=== PATIENT | female | born 1935 | race Caucasian/White ===

== ENCOUNTER 2021-11-27 13:07 | Inpatient (IN) | payer MEDICARE, OTHER ==
[2021-11-27] MEDS ORDERED: Sodium Chloride 0.9% 10 ML Syringe FLUSH PRN (13:11)
--- NOTE | 2021-11-27 13:21 | EDM.PDOC ---
ED HPI GENERAL MEDICAL PROBLEM - General Chief Complaint: Neuro Symptoms/Deficits Stated Complaint: MEDICAL Time Seen by Provider: 11/27/21 13:10 Source of Information: Reports: Family, Old Records, RN. Denies: Patient History Limitations: Reports: Altered Mental Status - History of Present Illness INITIAL COMMENTS - FREE TEXT/NARRATIVE: 85 yo female brought in by her son after she was noted not to be acting normally since about 9 am today(may have been not acting normally before that). Is not talking is the main thing they have noticed. Is otherwise alert. Is hard of hear ing per her son. Lives alone. Is not able to tell us if she took any or all of her meds today. Onset: Today, Sudden Onset Date: 11/27/21 Onset Time: 09:00 Duration: Hour(s): (4), Constant Location: Reports: Head Quality: Reports: Other (no pain reported) Severity: Moderate Improves with: Reports: None Worsens with: Reports: None Context: Reports: Other (See HPI) Associated Symptoms: Reports: No Other Symptoms Treatments CREDIT ANALYSIS MANAGER: Reports: Other (see below) (none) - Related Data Allergies Allergy/AdvReac Type Severity Reaction Status Date / Time atorvastatin Allergy Cannot Verified 08/18/13 07:56 Remember pravastatin Allergy Muscle Verified 08/18/13 07:57 Aches simvastatin Allergy Muscle Verified 08/18/13 08:01 Aches Home Meds: Home Meds Aspirin [Halfprin] 81 mg PO DAILY 08/21/13 [History] Cholecalciferol (Vitamin D3) [Vitamin D3] 1 cap PO DAILY 08/21/13 [History] Clopidogrel Bisulfate [Clopidogrel] 75 mg PO DAILY 08/21/13 [History] Cyanocobalamin (Vitamin B12) [Vitamin B12] 1 ml IM ASDIRECTED 08/21/13 [History] Flaxseed [Flaxseed Oil] 2,000 mg PO DAILY 08/21/13 [History] Glucosamine HCl [Glucosamine] 1,500 mg PO DAILY 08/21/13 [History] Lactobacillus 3/Fos/Pantethine [Probiotic & Acidophilus] 1 cap PO DAILY 08/21/13 [History] Levothyroxine 75 mcg PO DAILY 08/21/13 [History] Metoprolol Tartrate 50 mg PO DAILY 08/21/13 [History] Multivitamin [Multi-Vitamin Daily] 1 tab PO DAILY 08/21/13 [History] [place]-3/DHA/Epa/Fish Oil [Fish Oil 1,000 mg Softgel] 2 cap PO DAILY 08/21/13 [History] Rosuvastatin [Crestor] 5 mg PO DAILY 08/21/13 [History] Ubidecarenone [Co Q-10] 100 mg PO DAILY 08/21/13 [History] allopurinoL [Zyloprim] 100 mg PO DAILY 08/21/13 [History] ED ROS GENERAL - Review of Systems Review Of Systems: Unable To Obtain Reason Not Obtained: patient is non-verbal Constitutional: Reports: No Symptoms ED EXAM, NEURO - Physical Exam Exam: See Below Exam Limited By: No Limitations General Appearance: Alert, WD/WN, No Apparent Distress Eye Exam: Bilateral Eye: Normal Inspection, PERRL Ears: Normal External Exam, Normal Canal, Hearing Loss. No: Hearing Grossly Normal Nose: Normal Inspection, No Blood Throat/Mouth: Normal Inspection, Normal Lips, Normal Oropharynx, Normal Voice, No Airway Compromise Head Exam: Atraumatic, Normocephalic Neck: Normal Inspection Respiratory/Chest: No Respiratory Distress, Lungs Clear, Normal Breath Sounds, No Accessory Muscle Use Cardiovascular: Regular Rate, Rhythm, No Edema GI/Abdominal: Soft, Non-Tender Neurological: Alert, Normal Mood/Affect, CN II-XII Intact, No Motor/Sensory Deficits, Other (is hard to stay on task, ? due to confusion vs deafness. No obvious deficits other than she does not speak. ) Back Exam: Normal Inspection Extremities: Normal Inspection, Normal Range of Motion, Non-Tender, No Pedal Edema. No: Pedal Edema Psychiatric: Normal Affect, Normal Mood Skin Exam: Warm, Dry, Intact, Normal Color, No Rash #1 Interpretation EKG Date: 11/27/21 Time: 13:20 Rhythm: NSR Rate (Beats/Min): 76 [place]: Normal P-Wave: Present QRS: RBBB ST-T: Normal QT: Normal Comparison: No Change Course - Vital Signs Text/Narrative:: [facility] neurology, Dr. Humphrey called @ 1423h Dr. Bautista called @ 1427h Last Recorded V/S: Last Vital Signs Temp 36.1 C 11/27/21 13:15 Pulse 73 11/27/21 14:22 Resp 13 11/27/21 13:46 BP 194/93 H 11/27/21 14:22 Pulse Ox 99 11/27/21 13:46 - Orders/Labs/Meds Orders: Active Orders 24 hr Category Date Time Status TSH ULTRASENSITIVE [CHEM] Stat Lab 11/27/21 13:20 Received Sodium Chloride 0.9% [Saline Flush] Med 11/27/21 13:11 Active 10 ml FLUSH ASDIRECTED PRN Saline Lock Insert [OM.PC] Routine Oth 11/27/21 13:11 Ordered EKG 12 Lead [EK] Routine Ther 11/27/21 13:12 Ordered Medication Orders Sodium Chloride (Sodium Chloride 0.9% 10 Ml Syringe) 10 ml FLUSH ASDIRECTED PRN PRN Reason: Keep Vein Open Labs: Laboratory Tests 11/27/21 11/27/21 11/27/21 Range/Units 13:20 13:20 13:59 WBC 8.9 (4.5-11.0) K/uL RBC 3.49 (3.30-5.50) M/uL Hgb 11.2 L (12.0-15.0) g/dL Hct 34.3 L (36.0-48.0) % MCV 98 (80-98) fL MCH 32 H (27-31) pg MCHC 33 (32-36) % Plt Count 302 (150-400) K/uL Sodium 136 L (140-148) mmol/L Potassium 3.9 (3.6-5.2) mmol/L Chloride 96 L (100-108) mmol/L Carbon Dioxide 31 (21-32) mmol/L Anion Gap 12.9 (5.0-14.0) mmol/L BUN 19 H (7-18) mg/dL Creatinine 1.7 H (0.5-1.0) mg/dL Est Cr Clr Drug Dosing TNP Estimated GFR (MDRD) 29 L (>60) Glucose 113 H (74-106) mg/dL Calcium 9.7 (8.5-10.1) mg/dL Troponin I High Sens 10.7 (<=60.3) pg/mL Urine Color Yellow (YELLOW) Urine Appearance Slightly cloudy A (CLEAR) Urine pH 6.5 (5.0-8.0) Ur Specific [place] >= 1.030 (1.008-1.030) Urine Protein >=300 H (NEGATIVE) mg/dL Urine Glucose (UA) Negative (NEGATIVE) mg/dL Urine Ketones Negative (NEGATIVE) mg/dL Urine Occult Blood Trace-intact H (NEGATIVE) Urine Nitrite Negative (NEGATIVE) Urine Bilirubin Negative (NEGATIVE) Urine Urobilinogen 0.2 (0.2-1.0) EU/dL Ur Leukocyte Esterase Negative (NEGATIVE) Urine RBC 5-10 H (0-5) Urine WBC 0-5 (0-5) Ur Epithelial Cells Few Amorphous Sediment Moderate Urine Bacteria Rare Urine Mucus Few Meds: Medications Generic Name Dose Route Start Last Admin Trade Name Freq PRN Reason Stop Dose Admin Sodium Chloride 10 ml 11/27/21 13:11 Sodium Chloride 0.9% 10 Ml Syringe FLUSH ASDIRECTED PRN Keep Vein Open Discontinued Medications Generic Name Dose Route Start Last Admin Trade Name Freq PRN Reason Stop Dose Admin Aspirin 324 mg 11/27/21 13:51 11/27/21 14:23 Aspirin 81 Mg Tab.Chew PO 11/27/21 13:52 324 mg ONETIME ONE Administration Clopidogrel Bisulfate 75 mg 11/27/21 13:51 11/27/21 14:21 Clopidogrel 75 Mg Tab PO 11/27/21 13:52 75 mg ONETIME ONE Administration Metoprolol Tartrate 50 mg 11/27/21 13:51 11/27/21 14:22 Metoprolol Tartrate 50 Mg Tab PO 11/27/21 13:52 50 mg ONETIME ONE Administration - Radiology Interpretation Free Text/Narrative:: Head CT scan- Impression: 1. No acute intracranial process. 2. Moderate chronic ischemic microvascular disease. The above findings were communicated over the telephone with Dr. Fontana by Dr. Lantigua at 1405 hours on 11/27/2021. Please note that all CT scans at this facility use dose modulation, iterative reconstruction, and/or weight-based dosing when appropriate to reduce radiation dose to as low as reasonably achievable. Dictated by Maykel Lantigua MD @ 11/27/2021 2:08:[address] Results Date: 11/27/21 CT Results Time: 14:05 Departure - Departure Time of Disposition: 14:45 Disposition: Admitted As Inpatient 66 Condition: Serious Clinical Impression: Expressive aphasia CVA (cerebral vascular accident) Qualifiers: CVA mechanism: unspecified Qualified Code(s): I63.9 - Cerebral infarction, unspecified - Discharge Information *PRESCRIPTION DRUG MONITORING PROGRAM REVIEWED*: Not Applicable *COPY OF PRESCRIPTION DRUG MONITORING REPORT IN PATIENT CHRIS: Not Applicable Referrals: PCP,None [Primary Care Provider] - Forms: ED Department Discharge Sepsis Event Note (ED) - Focused Exam Vital Signs: Vital Signs Temp Pulse Pulse Resp BP BP Pulse Ox 11/27/21 14:22 73 194/93 H 11/27/21 13:46 74 13 186/101 H 99 11/27/21 13:34 74 13 195/113 H 100 11/27/21 13:15 36.1 C 78 14 203/92 H 96 - My Orders Last 24 Hours: My Active Orders 11/27/21 13:11 Sodium Chloride 0.9% [Saline Flush] 10 ml FLUSH ASDIRECTED PRN Saline Lock Insert [OM.PC] Routine 11/27/21 13:12 EKG 12 Lead [EK] Routine 11/27/21 13:20 TSH ULTRASENSITIVE [CHEM] Stat - Assessment/Plan Last 24 Hours: My Active Orders 11/27/21 13:11 Sodium Chloride 0.9% [Saline Flush] 10 ml FLUSH ASDIRECTED PRN Saline Lock Insert [OM.PC] Routine 11/27/21 13:12 EKG 12 Lead [EK] Routine 11/27/21 13:20 TSH ULTRASENSITIVE [CHEM] Stat
[2021-11-27] MEDS ORDERED: Aspirin 81 MG Tab.Chew PO ONE (13:51)
[2021-11-27] MEDS ORDERED: Clopidogrel 75 MG Tab PO ONE (13:51)
[2021-11-27] MEDS ORDERED: Metoprolol Tartrate 50 MG Tab PO ONE (13:51)
--- NOTE | 2021-11-27 14:08 | CRLCT ---
For Patients: As a result of the Century Cures Act, medical imaging exams and procedure reports are released immediately into your electronic medical record. You may view this report before your referring provider. If you have questions, please contact your health care provider. Indication : Acute confusion. Concern for stroke. Technique : CT of the brain without intravenous contrast. Comparison: None relevant available at the time of interpretation. Findings: No acute blurring of the schulz-white differentiation. There is no intracranial hemorrhage. The ventricles are proportionate to the cerebral sulci. The 4th ventricle is midline. Basal cisterns appear patent. No abnormal extra-axial fluid collection identified. Moderate parenchymal volume loss. There is moderate patchy periventricular hypodensity, favored to represent chronic ischemic microvascular disease. There is no intracranial mass, mass effect or midline shift identified. No depressed calvarial fracture. Impression: 1. No acute intracranial process. 2. Moderate chronic ischemic microvascular disease. The above findings were communicated over the telephone with Dr. Fontana by Dr. Lantigua at 1405 hours on 11/27/2021. Please note that all CT scans at this facility use dose modulation, iterative reconstruction, and/or weight-based dosing when appropriate to reduce radiation dose to as low as reasonably achievable. Dictated by Maykel Lantigua MD @ 11/27/2021 2:08:12 PM (Electronically Signed)
[2021-11-27] MEDS ORDERED: Levothyroxine 100 MCG Vial IVPUSH ONE (15:01)
--- NOTE | 2021-11-27 15:16 | PCM.HP.2 ---
H&P History of Present Illness - General Date of Service: 11/27/21 Admit Problem/Dx: Admission Diagnosis/Problem Admission Diagnosis/Problem CVA, Cerebrovascular accident Source of Information: Family, Provider. No: Patient History Limitations: Reports: Altered Mental Status - History of Present Illness Initial Comments - Free Text/Narative: CC: not acting like herself HPI: Celeste was brought to the emergency room for evaluation of patient. Her son reports that she has been off the last few days and not quite acting like herself. She has had several falls. She has not reported anything specific to him. She is not able to provide any reliable history at this time but I am not sure if it is because she cannot say the right words or if she is not thinking clearly. He saw her this morning about 9 AM and she was acting fairly normal. Over the next several hours she became less and less interactive and did not speak. When she was not talking they were concerned about her and brought her in for evaluation. She is able to tell me that she is cold and that believe about it. She is not able to follow commands. Her son brought in all of her pills and she has multiple bottles of each of her medications and it does not appear that she has been taking her medications. Work-up in the emergency room was initially focused on ruling out stroke. Head CT showed some volume loss but no acute findings. Initially the patient was not talking but did not have any other focal findings. She was able to swallow her pills. Blood pressure was elevated in the 190 range. Laboratory studies show a slight rise in her creatinine from baseline but close to her stage IIIb kidney disease. TSH is 172. No evidence for urinary tract infection. Neurology at [facility] was contacted regarding a possible stroke. They did not feel that this represented an acute stroke but did recommend additional work-up and continuing her medical management. She will be admitted for management of probable CVA and severe hypothyroidism. Past medical history remarkable for stage III chronic kidney disease, acquired hypothyroidism, essential hypertension - Related Data Allergies/Adverse Reactions: Allergies Allergy/AdvReac Type Severity Reaction Status Date / Time atorvastatin Allergy Cannot Verified 08/18/13 07:56 Remember pravastatin Allergy Muscle Verified 08/18/13 07:57 Aches simvastatin Allergy Muscle Verified 08/18/13 08:01 Aches Home Medications: Home Meds Aspirin [Halfprin] 81 mg PO DAILY 08/21/13 [History] Clopidogrel Bisulfate [Clopidogrel] 75 mg PO DAILY 08/21/13 [History] Levothyroxine 75 mcg PO DAILY 08/21/13 [History] Difluprednate [Durezol] 1 drop EYERT DAILY 11/27/21 [History] Ezetimibe 10 mg PO DAILY 11/27/21 [History] Rosuvastatin [Crestor] 10 mg PO DAILY 11/27/21 [History] allopurinoL [Zyloprim] 100 mg PO DAILY 11/27/21 [History] amLODIPine [Norvasc] 2.5 mg PO DAILY 11/27/21 [History] paricalcitoL [Paricalcitol] 2 mcg PO ASDIRECTED 11/27/21 [History] Social & Family History - Family History Family Medical History: Unobtainable (Patient not able to answer questions) - Alcohol Use Alcohol Use History: Yes Alcohol Use in Last Twelve Months: Yes H&P Review of Systems - Review of Systems: Review Of Systems: Unable To Obtain Reason Not Obtained: Patient not able to answer questions Exam - Exam Exam: See Below - Vital Signs Vital Signs: Last Vital Signs Temp 36.1 C 11/27/21 13:15 Pulse 70 11/27/21 14:43 Resp 15 11/27/21 14:43 BP 198/102 H 11/27/21 14:43 Pulse Ox 99 11/27/21 14:43 Weight: 53.07 kg - Exam Quality Assessment: No: Supplemental Oxygen General: Alert. No: Oriented, Cooperative, Mild Distress HEENT: Conjunctiva Clear. No: Mucosa Moist & [place] (Dry) Neck: Supple, Trachea Midline Lungs: Clear to Auscultation, Normal Respiratory Effort Cardiovascular: Regular Rate, Regular Rhythm. No: Systolic Murmur GI/Abdominal Exam: Normal Bowel Sounds, Soft, Non-Tender, No Distention Back Exam: Normal Inspection, Full Range of Motion Extremities: No Pedal Edema. No: Increased Warmth Peripheral Pulses: 2+: Dorsalis Pedis (L), Dorsalis Pedis (R) Neuro Extensive - Mental Status: Alert. No: Oriented x3, Slow Response to Commands Neuro Extensive - Motor, Sensory, Reflexes: Expressive Aphasia. No: Dysarthria, Facial Palsy (R), Facial palsy (L), Abnormal Motor, Tremor Psychiatric: Alert, Normal Affect - Patient Data Lab Results Last 24 hrs: Laboratory Results - last 24 hr 11/27/21 11/27/21 11/27/21 Range/Units 13:20 13:20 13:20 WBC 8.9 (4.5-11.0) K/uL RBC 3.49 (3.30-5.50) M/uL Hgb 11.2 L (12.0-15.0) g/dL Hct 34.3 L (36.0-48.0) % MCV 98 (80-98) fL MCH 32 H (27-31) pg MCHC 33 (32-36) % Plt Count 302 (150-400) K/uL Sodium 136 L (140-148) mmol/L Potassium 3.9 (3.6-5.2) mmol/L Chloride 96 L (100-108) mmol/L Carbon Dioxide 31 (21-32) mmol/L Anion Gap 12.9 (5.0-14.0) mmol/L BUN 19 H (7-18) mg/dL Creatinine 1.7 H (0.5-1.0) mg/dL Est Cr Clr Drug Dosing TNP Estimated GFR (MDRD) 29 L (>60) Glucose 113 H (74-106) mg/dL Calcium 9.7 (8.5-10.1) mg/dL Troponin I High Sens 10.7 (<=60.3) pg/mL TSH, Ultra Sensitive 175.040 H (0.358-3.740) uIU/mL Urine Color (YELLOW) Urine Appearance (CLEAR) Urine pH (5.0-8.0) Ur Specific [place] (1.008-1.030) Urine Protein (NEGATIVE) mg/dL Urine Glucose (UA) (NEGATIVE) mg/dL Urine Ketones (NEGATIVE) mg/dL Urine Occult Blood (NEGATIVE) Urine Nitrite (NEGATIVE) Urine Bilirubin (NEGATIVE) Urine Urobilinogen (0.2-1.0) EU/dL Ur Leukocyte Esterase (NEGATIVE) Urine RBC (0-5) Urine WBC (0-5) Ur Epithelial Cells Amorphous Sediment Urine Bacteria Urine Mucus 11/27/21 Range/Units 13:59 WBC (4.5-11.0) K/uL RBC (3.30-5.50) M/uL Hgb (12.0-15.0) g/dL Hct (36.0-48.0) % MCV (80-98) fL MCH (27-31) pg MCHC (32-36) % Plt Count (150-400) K/uL Sodium (140-148) mmol/L Potassium (3.6-5.2) mmol/L Chloride (100-108) mmol/L Carbon Dioxide (21-32) mmol/L Anion Gap (5.0-14.0) mmol/L BUN (7-18) mg/dL Creatinine (0.5-1.0) mg/dL Est Cr Clr Drug Dosing Estimated GFR (MDRD) (>60) Glucose (74-106) mg/dL Calcium (8.5-10.1) mg/dL Troponin I High Sens (<=60.3) pg/mL TSH, Ultra Sensitive (0.358-3.740) uIU/mL Urine Color Yellow (YELLOW) Urine Appearance Slightly cloudy A (CLEAR) Urine pH 6.5 (5.0-8.0) Ur Specific [place] >= 1.030 (1.008-1.030) Urine Protein >=300 H (NEGATIVE) mg/dL Urine Glucose (UA) Negative (NEGATIVE) mg/dL Urine Ketones Negative (NEGATIVE) mg/dL Urine Occult Blood Trace-intact H (NEGATIVE) Urine Nitrite Negative (NEGATIVE) Urine Bilirubin Negative (NEGATIVE) Urine Urobilinogen 0.2 (0.2-1.0) EU/dL Ur Leukocyte Esterase Negative (NEGATIVE) Urine RBC 5-10 H (0-5) Urine WBC 0-5 (0-5) Ur Epithelial Cells Few Amorphous Sediment Moderate Urine Bacteria Rare Urine Mucus Few Result Diagrams: 11/27/21 13:20 11/27/21 13:20 Imaging Impressions Last 24 hrs: Head CT-images personally reviewed-no acute findings. No mass, obvious infarct or hemorrhage. There is some mild volume loss. Sepsis Event Note - Evaluation Sepsis Screening Result: No Definite Risk - Focused Exam Vital Signs: Vital Signs Temp Pulse Pulse Resp BP BP Pulse Ox 11/27/21 14:43 70 15 198/102 H 99 11/27/21 14:22 73 194/93 H 11/27/21 13:46 74 13 186/101 H 99 11/27/21 13:34 74 13 195/113 H 100 11/27/21 13:15 36.1 C 78 14 203/92 H 96 *Q Meaningful Use (ADM) - VTE Risk Assess *Q Each Risk Factor Represents 1 Point: None Total Score 1 Point Risk Factors: 0 Each Risk Factor Represents 2 Points: None Total Score 2 Point Risk Factors: 0 Each Risk Factor Represents 3 Points: Age 75 Years or Greater Total Score 3 Point Risk Factors: 3 Each Risk Factor Represents 5 Points: None Total Score 5 Point Risk Factors: 0 Venous Thromboembolism Risk Factor Score *Q: 3 - Problem List (1) CVA (cerebral vascular accident) SNOMED Code(s): 591541703 ICD Code: I63.9 - CEREBRAL INFARCTION, UNSPECIFIED Status: Suspected Current Visit: Yes Qualifiers: CVA mechanism: unspecified Qualified Code(s): I63.9 - Cerebral infarction, unspecified (2) Expressive aphasia SNOMED Code(s): 682482239, 297350401 ICD Code: R47.01 - APHASIA Status: Acute Current Visit: Yes (3) Hypothyroidism, acquired SNOMED Code(s): 963496543 ICD Code: E03.9 - HYPOTHYROIDISM, UNSPECIFIED Status: Acute Current Visit: Yes (4) Essential hypertension SNOMED Code(s): 74287465 ICD Code: I10 - ESSENTIAL (PRIMARY) HYPERTENSION Status: Chronic Current Visit: Yes (5) Stage 3b chronic kidney disease (CKD) SNOMED Code(s): 639306570 ICD Code: N18.32 - CHRONIC KIDNEY DISEASE, STAGE 3B Status: Chronic Current Visit: Yes Problem List Initiated/Reviewed/Updated: Yes Orders Last 24hrs: Active Orders 24 hr Category Date Time Status Patient Status Manage Transfer [TRANSFER] Routine ADT 11/27/21 15:08 Active COVID-19/FLU A+B/RSV [MOLEC] Routine Lab 11/27/21 15:06 Received Sodium Chloride 0.9% [Saline Flush] Med 11/27/21 13:11 Active 10 ml FLUSH ASDIRECTED PRN Isolation [COMM] Stat Oth 11/27/21 15:02 Ordered Saline Lock Insert [OM.PC] Routine Oth 11/27/21 13:11 Ordered Resuscitation Status Routine Resus Stat 11/27/21 15:10 Ordered EKG 12 Lead [EK] Routine Ther 11/27/21 13:12 Ordered Medication Orders Sodium Chloride (Sodium Chloride 0.9% 10 Ml Syringe) 10 ml FLUSH ASDIRECTED PRN PRN Reason: Keep Vein Open Last Admin: 11/27/21 14:39 Dose: 10 ml Documented by: DONNY Assessment/Plan Comment:: ASSESSMENT AND PLAN - Cerebrovascular accident, suspected-patient with fairly acute onset of aphasia this morning. Seems to be perking up a little bit in the emergency room. Head CT did not show obvious infarct or hemorrhage. She does have severe hypothyroidism and this could be contributing but it seems odd that it would happen so quickly. Case was discussed with neurology and they did recommend continuing medical management and further work-up with MRI. No other obvious focal deficits at this time besides her speech difficulty. -Aspirin and clopidogrel -Hold off on blood pressure reduction today, start medications tomorrow -Continue rosuvastatin -Cardiac monitoring -MRI and MRA in the morning Severe hypothyroidism-does not appear that patient has been taking her medications as previously prescribed because she has multiple nearly full bottles of all of her medications. -Dose of IV levothyroxine today -Oral supplementation with increased dose tomorrow Stage IIIb chronic kidney disease-creatinine near baseline but slightly lower. -Encourage oral intake Essential hypertension-systolic blood pressures in the 190 range at this time. Plan to restart her amlodipine in the morning. Maintenance issues - -DVT prophylaxis-SCDs and dual antiplatelet therapy -GI prophylaxis-not indicated -Nutrition-regular -Pate catheter-not indicated CODE STATUS -DNR/DNI Admission justification -this patient will be admitted for inpatient services and is medically appropriate meeting medical necessity for inpatient admission as outlined in my documentation. I reasonably expect the patient will require inpatient services that span a period time over 2 midnights. I reasonably expect this patient to be discharged or transferred within 96 hours [facility]. Disposition -I anticipate discharge home after the hospital stay Primary care physician - Bethanie Bautista M.D. - Mortality Measure Prognosis:: Good
[2021-11-27 15:43] LABS: CORONAVIRUS COVID-19 NAA NEGATIVE (NEGATIVE)
[2021-11-27] MEDS ORDERED: Magnesium Hydroxide 400 MG/5 ML Susp 30 ML Cup PO PRN (16:27)
[2021-11-27] MEDS ORDERED: Ondansetron 4 MG Tab.DIS PO PRN (16:27)
[2021-11-27] MEDS ORDERED: LORazepam 2 MG/ML SDV IVPUSH PRN (16:27)
[2021-11-27] MEDS ORDERED: Acetaminophen 325 MG Tab PO PRN (16:27)
[2021-11-27] MEDS ORDERED: Ondansetron 4 MG/2 ML SDV IV PRN (16:27)
[2021-11-27] MEDS: Melatonin 3 MG Tab PO SCH (20:42)
[2021-11-28] MEDS: Rosuvastatin 10 MG Tab PO SCH (08:23)
[2021-11-28] MEDS: Aspirin 81 MG Tab.EC PO SCH (08:23)
[2021-11-28] MEDS: Levothyroxine 100 MCG Tab PO SCH (08:23)
[2021-11-28] MEDS: Clopidogrel 75 MG Tab PO SCH (08:23)
[2021-11-28] MEDS: amLODIPine 5 MG Tab PO SCH (08:23)
[2021-11-28] MEDS: Ezetimibe 10 MG Tab PO SCH (08:23)
--- NOTE | 2021-11-28 12:57 | PCM.PN ---
- General Info Date of Service: 11/28/21 Subjective Update: Ms. Knowles since admission with poor oral intake and minimal verbalization. Plan had been to proceed with MRI and MRA this morning, this is not possible because of her pacemaker. We are unable to do CT scan with contrast because of her poor renal function. At this point with her lethargy and minimal verbal ability she is unable to provide meaningful information concerning review of systems or current symptoms. - Patient Data Vitals - Most Recent: Last Vital Signs Temp 98.9 F 11/28/21 11:03 Pulse 59 L 11/28/21 11:03 Resp 18 11/28/21 11:03 BP 151/75 H 11/28/21 11:03 Pulse Ox 93 L 11/28/21 11:03 Weight - Most Recent: 114 lb I&O - Last 24 Hours: Intake & Output 11/27/21 11/28/21 11/28/21 22:59 06:59 14:59 Intake Total 300 120 Output Total 200 Balance 100 120 Lab Results Last 24 Hours: Laboratory Results - last 24 hr 11/27/21 11/27/21 11/27/21 Range/Units 13:20 13:20 13:20 WBC 8.9 (4.5-11.0) K/uL RBC 3.49 (3.30-5.50) M/uL Hgb 11.2 L (12.0-15.0) g/dL Hct 34.3 L (36.0-48.0) % MCV 98 (80-98) fL MCH 32 H (27-31) pg MCHC 33 (32-36) % Plt Count 302 (150-400) K/uL Sodium 136 L (140-148) mmol/L Potassium 3.9 (3.6-5.2) mmol/L Chloride 96 L (100-108) mmol/L Carbon Dioxide 31 (21-32) mmol/L Anion Gap 12.9 (5.0-14.0) mmol/L BUN 19 H (7-18) mg/dL Creatinine 1.7 H (0.5-1.0) mg/dL Est Cr Clr Drug Dosing TNP Estimated GFR (MDRD) 29 L (>60) Glucose 113 H (74-106) mg/dL Calcium 9.7 (8.5-10.1) mg/dL Troponin I High Sens 10.7 (<=60.3) pg/mL TSH, Ultra Sensitive 175.040 H (0.358-3.740) uIU/mL Urine Color (YELLOW) Urine Appearance (CLEAR) Urine pH (5.0-8.0) Ur Specific [place] (1.008-1.030) Urine Protein (NEGATIVE) mg/dL Urine Glucose (UA) (NEGATIVE) mg/dL Urine Ketones (NEGATIVE) mg/dL Urine Occult Blood (NEGATIVE) Urine Nitrite (NEGATIVE) Urine Bilirubin (NEGATIVE) Urine Urobilinogen (0.2-1.0) EU/dL Ur Leukocyte Esterase (NEGATIVE) Urine RBC (0-5) Urine WBC (0-5) Ur Epithelial Cells Amorphous Sediment Urine Bacteria Urine Mucus Influenza Type A RNA (NEGATIVE) RSV RNA (INAAT) (NEGATIVE) Influenza Type B RNA (NEGATIVE) SARS-CoV-2 RNA (MIGUEL) (NEGATIVE) 11/27/21 11/27/21 11/28/21 Range/Units 13:59 15:06 04:25 WBC (4.5-11.0) K/uL RBC (3.30-5.50) M/uL Hgb (12.0-15.0) g/dL Hct (36.0-48.0) % MCV (80-98) fL MCH (27-31) pg MCHC (32-36) % Plt Count (150-400) K/uL Sodium 135 L (140-148) mmol/L Potassium 3.8 (3.6-5.2) mmol/L Chloride 96 L (100-108) mmol/L Carbon Dioxide 30 (21-32) mmol/L Anion Gap 12.8 (5.0-14.0) mmol/L BUN 25 H (7-18) mg/dL Creatinine 1.8 H (0.5-1.0) mg/dL Est Cr Clr Drug Dosing 16.41 Estimated GFR (MDRD) 27 L (>60) Glucose 82 (74-106) mg/dL Calcium 8.9 (8.5-10.1) mg/dL Troponin I High Sens (<=60.3) pg/mL TSH, Ultra Sensitive (0.358-3.740) uIU/mL Urine Color Yellow (YELLOW) Urine Appearance Slightly cloudy A (CLEAR) Urine pH 6.5 (5.0-8.0) Ur Specific [place] >= 1.030 (1.008-1.030) Urine Protein >=300 H (NEGATIVE) mg/dL Urine Glucose (UA) Negative (NEGATIVE) mg/dL Urine Ketones Negative (NEGATIVE) mg/dL Urine Occult Blood Trace-intact H (NEGATIVE) Urine Nitrite Negative (NEGATIVE) Urine Bilirubin Negative (NEGATIVE) Urine Urobilinogen 0.2 (0.2-1.0) EU/dL Ur Leukocyte Esterase Negative (NEGATIVE) Urine RBC 5-10 H (0-5) Urine WBC 0-5 (0-5) Ur Epithelial Cells Few Amorphous Sediment Moderate Urine Bacteria Rare Urine Mucus Few Influenza Type A RNA Negative (NEGATIVE) RSV RNA (INAAT) Negative (NEGATIVE) Influenza Type B RNA Negative (NEGATIVE) SARS-CoV-2 RNA (MIGUEL) Negative (NEGATIVE) Med Orders - Current: Current Medications Acetaminophen (Acetaminophen 325 Mg Tab) 650 mg PO Q4H PRN PRN Reason: Pain (Mild 1-3)/fever Amlodipine Besylate (Amlodipine 5 Mg Tab) 2.5 mg PO DAILY [facility] Last Admin: 11/28/21 08:23 Dose: 2.5 mg Documented by: Aspirin (Aspirin 81 Mg Tab.Ec) 81 mg PO DAILY [facility] Last Admin: 11/28/21 08:23 Dose: 81 mg Documented by: Clopidogrel Bisulfate (Clopidogrel 75 Mg Tab) 75 mg PO DAILY [facility] Last Admin: 11/28/21 08:23 Dose: 75 mg Documented by: Ezetimibe (Ezetimibe 10 Mg Tab) 10 mg PO DAILY [facility] Last Admin: 11/28/21 08:23 Dose: 10 mg Documented by: Sodium Chloride (Normal Saline) 1,000 mls @ 75 mls/hr IV ASDIRECTED [facility] Levothyroxine Sodium (Levothyroxine 100 Mcg Tab) 100 mcg PO ACBREAKFAST [facility] Last Admin: 11/28/21 08:23 Dose: 100 mcg Documented by: Lorazepam (Lorazepam 2 Mg/Ml Sdv) 0.5 mg IVPUSH Q4H PRN PRN Reason: Nausea/Vomiting Magnesium Hydroxide (Magnesium Hydroxide 400 Mg/5 Ml Susp 30 Ml Cup) 30 ml PO Q12H PRN PRN Reason: Constipation Melatonin (Melatonin 3 Mg Tab) 9 mg PO BEDTIME [facility] Last Admin: 11/27/21 20:42 Dose: 9 mg Documented by: Non-Formulary Medication (Difluprednate [Durezol]) 1 drop EYERT DAILY [facility] Ondansetron HCl (Ondansetron 4 Mg/2 Ml Sdv) 4 mg IV Q6H PRN PRN Reason: Nausea/Vomiting Ondansetron HCl (Ondansetron 4 Mg Tab.Dis) 4 mg PO Q6H PRN PRN Reason: Nausea able to take PO Rosuvastatin Calcium (Rosuvastatin 10 Mg Tab) 10 mg PO DAILY [facility] Last Admin: 11/28/21 08:23 Dose: 10 mg Documented by: Senna/Docusate Sodium (Docusate Sodium/Sennosides 50-8.6 Mg Tab) 1 tab PO BID PRN PRN Reason: Constipation Sodium Chloride (Sodium Chloride 0.9% 10 Ml Syringe) 10 ml FLUSH ASDIRECTED PRN PRN Reason: Keep Vein Open Last Admin: 11/27/21 14:39 Dose: 10 ml Documented by: Discontinued Medications Aspirin (Aspirin 81 Mg Tab.Chew) 324 mg PO ONETIME ONE Stop: 11/27/21 13:52 Last Admin: 11/27/21 14:23 Dose: 324 mg Documented by: Clopidogrel Bisulfate (Clopidogrel 75 Mg Tab) 75 mg PO ONETIME ONE Stop: 11/27/21 13:52 Last Admin: 11/27/21 14:21 Dose: 75 mg Documented by: Levothyroxine Sodium (Levothyroxine 100 Mcg Vial) 100 mcg IVPUSH ONETIME ONE Stop: 11/27/21 15:02 Last Admin: 11/27/21 18:09 Dose: 100 mcg Documented by: Metoprolol Tartrate (Metoprolol Tartrate 50 Mg Tab) 50 mg PO ONETIME ONE Stop: 11/27/21 13:52 Last Admin: 11/27/21 14:22 Dose: 50 mg Documented by: - Exam Quality Assessment: DVT Prophylaxis General: Lethargic Lungs: Clear to Auscultation, Normal Respiratory Effort Cardiovascular: Regular Rate, Regular Rhythm, No Murmurs GI/Abdominal Exam: Soft, Non-Tender, No Organomegaly, No Distention Extremities: Non-Tender, No Pedal Edema - Patient Data Lab Results Last 24 hrs: Laboratory Results - last 24 hr 11/27/21 11/27/21 11/27/21 Range/Units 13:20 13:20 13:20 WBC 8.9 (4.5-11.0) K/uL RBC 3.49 (3.30-5.50) M/uL Hgb 11.2 L (12.0-15.0) g/dL Hct 34.3 L (36.0-48.0) % MCV 98 (80-98) fL MCH 32 H (27-31) pg MCHC 33 (32-36) % Plt Count 302 (150-400) K/uL Sodium 136 L (140-148) mmol/L Potassium 3.9 (3.6-5.2) mmol/L Chloride 96 L (100-108) mmol/L Carbon Dioxide 31 (21-32) mmol/L Anion Gap 12.9 (5.0-14.0) mmol/L BUN 19 H (7-18) mg/dL Creatinine 1.7 H (0.5-1.0) mg/dL Est Cr Clr Drug Dosing TNP Estimated GFR (MDRD) 29 L (>60) Glucose 113 H (74-106) mg/dL Calcium 9.7 (8.5-10.1) mg/dL Troponin I High Sens 10.7 (<=60.3) pg/mL TSH, Ultra Sensitive 175.040 H (0.358-3.740) uIU/mL Urine Color (YELLOW) Urine Appearance (CLEAR) Urine pH (5.0-8.0) Ur Specific [place] (1.008-1.030) Urine Protein (NEGATIVE) mg/dL Urine Glucose (UA) (NEGATIVE) mg/dL Urine Ketones (NEGATIVE) mg/dL Urine Occult Blood (NEGATIVE) Urine Nitrite (NEGATIVE) Urine Bilirubin (NEGATIVE) Urine Urobilinogen (0.2-1.0) EU/dL Ur Leukocyte Esterase (NEGATIVE) Urine RBC (0-5) Urine WBC (0-5) Ur Epithelial Cells Amorphous Sediment Urine Bacteria Urine Mucus Influenza Type A RNA (NEGATIVE) RSV RNA (INAAT) (NEGATIVE) Influenza Type B RNA (NEGATIVE) SARS-CoV-2 RNA (MIGUEL) (NEGATIVE) 11/27/21 11/27/21 11/28/21 Range/Units 13:59 15:06 04:25 WBC (4.5-11.0) K/uL RBC (3.30-5.50) M/uL Hgb (12.0-15.0) g/dL Hct (36.0-48.0) % MCV (80-98) fL MCH (27-31) pg MCHC (32-36) % Plt Count (150-400) K/uL Sodium 135 L (140-148) mmol/L Potassium 3.8 (3.6-5.2) mmol/L Chloride 96 L (100-108) mmol/L Carbon Dioxide 30 (21-32) mmol/L Anion Gap 12.8 (5.0-14.0) mmol/L BUN 25 H (7-18) mg/dL Creatinine 1.8 H (0.5-1.0) mg/dL Est Cr Clr Drug Dosing 16.41 Estimated GFR (MDRD) 27 L (>60) Glucose 82 (74-106) mg/dL Calcium 8.9 (8.5-10.1) mg/dL Troponin I High Sens (<=60.3) pg/mL TSH, Ultra Sensitive (0.358-3.740) uIU/mL Urine Color Yellow (YELLOW) Urine Appearance Slightly cloudy A (CLEAR) Urine pH 6.5 (5.0-8.0) Ur Specific [place] >= 1.030 (1.008-1.030) Urine Protein >=300 H (NEGATIVE) mg/dL Urine Glucose (UA) Negative (NEGATIVE) mg/dL Urine Ketones Negative (NEGATIVE) mg/dL Urine Occult Blood Trace-intact H (NEGATIVE) Urine Nitrite Negative (NEGATIVE) Urine Bilirubin Negative (NEGATIVE) Urine Urobilinogen 0.2 (0.2-1.0) EU/dL Ur Leukocyte Esterase Negative (NEGATIVE) Urine RBC 5-10 H (0-5) Urine WBC 0-5 (0-5) Ur Epithelial Cells Few Amorphous Sediment Moderate Urine Bacteria Rare Urine Mucus Few Influenza Type A RNA Negative (NEGATIVE) RSV RNA (INAAT) Negative (NEGATIVE) Influenza Type B RNA Negative (NEGATIVE) SARS-CoV-2 RNA (MIGUEL) Negative (NEGATIVE) Result Diagrams: 11/27/21 13:20 11/28/21 04:25 Sepsis Event Note - Evaluation Sepsis Screening Result: No Definite Risk - Focused Exam Vital Signs: Vital Signs Temp Pulse Resp BP BP Pulse Ox 11/28/21 11:03 98.9 F 59 L 18 151/75 H 93 L 11/28/21 08:40 65 127/62 11/28/21 08:23 127/62 11/28/21 07:11 98.3 F 65 18 127/62 100 11/28/21 03:00 97.2 F 58 L 16 139/75 96 - Problem List Review Problem List Initiated/Reviewed/Updated: Yes - My Orders Last 24 Hours: My Active Orders 11/28/21 08:20 EKG 12 Lead [EK] Stat 11/28/21 09:40 Consult to Speech Language Pathology [ORDER PICKER Evaluation and Treatment] [CONS] Routine 11/28/21 13:00 Sodium Chloride 0.9% @ 75 MLS/HR(1000ml) Sodium Chloride 0.9% [Normal Saline] 1,000 ml IV ASDIRECTED 11/29/21 05:00 BASIC METABOLIC PANEL,BMP [CHEM] Timed - Plan Plan:: ASSESSMENT AND PLAN - Cerebrovascular accident, suspected-patient with fairly acute onset of aphasia this morning. Unchanged from admission yesterday, still lethargic with only minimal verbalization. Unable to proceed with MRI and MRA because of pacemaker. Unable to proceed with CT scan with contrast because of renal insufficiency -Aspirin and clopidogrel -Continue rosuvastatin -Cardiac monitoring -Consider CT with contrast and CT angiogram if renal function improves Severe hypothyroidism-does not appear that patient has been taking her medications as previously prescribed because she has multiple nearly full bottles of all of her medications. -Levothyroxine daily Stage IIIb chronic kidney disease-creatinine near baseline but slightly lower. No improvement in renal function since admission -Normal saline 75 cc/h, reassess in a.m. Essential hypertension-systolic blood pressures in the 190 range at this time. Plan to restart her amlodipine in the morning. Maintenance issues - -DVT prophylaxis-SCDs and dual antiplatelet therapy -GI prophylaxis-not indicated -Nutrition-regular -Pate catheter-not indicated CODE STATUS -DNR/DNI Admission justification -this patient will be admitted for inpatient services and is medically appropriate meeting medical necessity for inpatient admission as outlined in my documentation. I reasonably expect the patient will require inpatient services that span a period time over 2 midnights. I reasonably expect this patient to be discharged or transferred within 96 hours [facility] Disposition -I anticipate discharge home after the hospital stay Primary care physician - Bethanie Mendoza NP
[2021-11-28] MEDS: Sodium Chloride 0.9% 1,000 ML IV SCH (13:59)
[2021-11-28] MEDS: Melatonin 3 MG Tab PO SCH (20:53)
[2021-11-29] MEDS: Sodium Chloride 0.9% 1,000 ML IV SCH (03:01)
[2021-11-29] MEDS: Levothyroxine 100 MCG Tab PO SCH (08:23)
[2021-11-29] MEDS: Rosuvastatin 10 MG Tab PO SCH (08:23)
[2021-11-29] MEDS: Ezetimibe 10 MG Tab PO SCH (08:23)
[2021-11-29] MEDS: Clopidogrel 75 MG Tab PO SCH (08:23)
[2021-11-29] MEDS ORDERED: Potassium Chloride 20 MEQ Tab.ER PO ONE ×2 (08:24→17:00)
[2021-11-29] MEDS: Aspirin 81 MG Tab.EC PO SCH (08:24)
[2021-11-29] MEDS: amLODIPine 5 MG Tab PO SCH (08:39)
--- NOTE | 2021-11-29 14:13 | PCM.PN ---
- General Info Date of Service: 11/29/21 Subjective Update: Ms. Knowles has improved significantly since yesterday. She is much more alert and conversant, although still fairly confused. Overall energy level better and she is transferring and ambulating with assistance of 1. She is unable to provide meaningful information concerning symptoms or review of systems because of confusion. - Patient Data Vitals - Most Recent: Last Vital Signs Temp 98.5 F 11/29/21 08:39 Pulse 65 11/29/21 08:39 Resp 16 11/29/21 08:39 BP 120/64 11/29/21 08:39 Pulse Ox 99 11/29/21 08:39 Weight - Most Recent: 114 lb I&O - Last 24 Hours: Intake & Output 11/28/21 11/29/21 11/29/21 22:59 06:59 14:59 Intake Total 900 1115 240 Output Total 400 200 Balance 900 715 40 Lab Results Last 24 Hours: Laboratory Results - last 24 hr 11/29/21 Range/Units 05:35 Sodium 137 L (140-148) mmol/L Potassium 3.5 L (3.6-5.2) mmol/L Chloride 100 (100-108) mmol/L Carbon Dioxide 29 (21-32) mmol/L Anion Gap 11.5 (5.0-14.0) mmol/L BUN 28 H (7-18) mg/dL Creatinine 1.6 H (0.6-1.0) mg/dL Est Cr Clr Drug Dosing 18.46 mL/min Estimated GFR (MDRD) 31 L (>60) Glucose 81 (74-106) mg/dL Calcium 8.5 (8.5-10.1) mg/dL Med Orders - Current: Current Medications Acetaminophen (Acetaminophen 325 Mg Tab) 650 mg PO Q4H PRN PRN Reason: Pain (Mild 1-3)/fever Amlodipine Besylate (Amlodipine 5 Mg Tab) 2.5 mg PO DAILY [facility] Last Admin: 11/29/21 08:39 Dose: 2.5 mg Documented by: Aspirin (Aspirin 81 Mg Tab.Ec) 81 mg PO DAILY [facility] Last Admin: 11/29/21 08:24 Dose: 81 mg Documented by: Clopidogrel Bisulfate (Clopidogrel 75 Mg Tab) 75 mg PO DAILY [facility] Last Admin: 11/29/21 08:23 Dose: 75 mg Documented by: Ezetimibe (Ezetimibe 10 Mg Tab) 10 mg PO DAILY [facility] Last Admin: 11/29/21 08:23 Dose: 10 mg Documented by: Levothyroxine Sodium (Levothyroxine 100 Mcg Tab) 100 mcg PO ACBREAKFAST [facility] Last Admin: 11/29/21 08:23 Dose: 100 mcg Documented by: Lorazepam (Lorazepam 2 Mg/Ml Sdv) 0.5 mg IVPUSH Q4H PRN PRN Reason: Nausea/Vomiting Magnesium Hydroxide (Magnesium Hydroxide 400 Mg/5 Ml Susp 30 Ml Cup) 30 ml PO Q12H PRN PRN Reason: Constipation Melatonin (Melatonin 3 Mg Tab) 9 mg PO BEDTIME [facility] Last Admin: 11/28/21 20:53 Dose: 9 mg Documented by: Non-Formulary Medication (Difluprednate [Durezol]) 1 drop EYERT DAILY [facility] Ondansetron HCl (Ondansetron 4 Mg/2 Ml Sdv) 4 mg IV Q6H PRN PRN Reason: Nausea/Vomiting Ondansetron HCl (Ondansetron 4 Mg Tab.Dis) 4 mg PO Q6H PRN PRN Reason: Nausea able to take PO Rosuvastatin Calcium (Rosuvastatin 10 Mg Tab) 10 mg PO DAILY [facility] Last Admin: 11/29/21 08:23 Dose: 10 mg Documented by: Senna/Docusate Sodium (Docusate Sodium/Sennosides 50-8.6 Mg Tab) 1 tab PO BID PRN PRN Reason: Constipation Sodium Chloride (Sodium Chloride 0.9% 10 Ml Syringe) 10 ml FLUSH ASDIRECTED PRN PRN Reason: Keep Vein Open Last Admin: 11/27/21 14:39 Dose: 10 ml Documented by: Discontinued Medications Aspirin (Aspirin 81 Mg Tab.Chew) 324 mg PO ONETIME ONE Stop: 11/27/21 13:52 Last Admin: 11/27/21 14:23 Dose: 324 mg Documented by: Clopidogrel Bisulfate (Clopidogrel 75 Mg Tab) 75 mg PO ONETIME ONE Stop: 11/27/21 13:52 Last Admin: 11/27/21 14:21 Dose: 75 mg Documented by: Sodium Chloride (Normal Saline) 1,000 mls @ 75 mls/hr IV ASDIRECTED [facility] Last Admin: 11/29/21 03:01 Dose: 75 mls/hr Documented by: Levothyroxine Sodium (Levothyroxine 100 Mcg Vial) 100 mcg IVPUSH ONETIME ONE Stop: 11/27/21 15:02 Last Admin: 11/27/21 18:09 Dose: 100 mcg Documented by: Metoprolol Tartrate (Metoprolol Tartrate 50 Mg Tab) 50 mg PO ONETIME ONE Stop: 11/27/21 13:52 Last Admin: 11/27/21 14:22 Dose: 50 mg Documented by: Potassium Chloride (Potassium Chloride 20 Meq Tab.Er) 40 meq PO ONETIME ONE Stop: 11/29/21 08:25 Last Admin: 11/29/21 08:48 Dose: 40 meq Documented by: - Exam Quality Assessment: DVT Prophylaxis General: Alert, Cooperative, Mild Distress. No: Oriented Lungs: Clear to Auscultation, Normal Respiratory Effort Cardiovascular: Regular Rate, Regular Rhythm, No Murmurs GI/Abdominal Exam: Soft, Non-Tender, No Organomegaly, No Distention Extremities: Non-Tender, No Pedal Edema - Patient Data Lab Results Last 24 hrs: Laboratory Results - last 24 hr 11/29/21 Range/Units 05:35 Sodium 137 L (140-148) mmol/L Potassium 3.5 L (3.6-5.2) mmol/L Chloride 100 (100-108) mmol/L Carbon Dioxide 29 (21-32) mmol/L Anion Gap 11.5 (5.0-14.0) mmol/L BUN 28 H (7-18) mg/dL Creatinine 1.6 H (0.6-1.0) mg/dL Est Cr Clr Drug Dosing 18.46 mL/min Estimated GFR (MDRD) 31 L (>60) Glucose 81 (74-106) mg/dL Calcium 8.5 (8.5-10.1) mg/dL Result Diagrams: 11/27/21 13:20 11/29/21 05:35 Sepsis Event Note - Evaluation Sepsis Screening Result: No Definite Risk - Focused Exam Vital Signs: Vital Signs Temp Pulse Resp BP BP Pulse Ox 11/29/21 08:39 98.5 F 65 16 120/64 120/64 99 - Problem List Review Problem List Initiated/Reviewed/Updated: Yes - My Orders Last 24 Hours: My Active Orders 11/29/21 11:14 Discontinue Telemetry Monitoring [Cardiac Monitoring Discontinue] [RC] Click to Edit 11/29/21 11:15 Convert IV to Saline Lock [OM.PC] Routine 11/29/21 17:00 Potassium Chloride [Klor-Con M20] 40 meq PO ONETIME ONE 11/30/21 05:00 BASIC METABOLIC PANEL,BMP [CHEM] Timed - Plan Plan:: ASSESSMENT AND PLAN - Cerebrovascular accident, suspected-this seems to be less likely at this point. She is improved significantly and I suspect most of her symptoms are related to severe hypothyroidism -Aspirin and clopidogrel -Continue rosuvastatin -Cardiac monitoring -Consider CT with contrast and CT angiogram if renal function improves Severe hypothyroidism-does not appear that patient has been taking her medications as previously prescribed because she has multiple nearly full bottles of all of her medications. Good improvement in overall strength as well as cognitive function in the last 24 hours. -Levothyroxine daily Stage IIIb chronic kidney disease-creatinine near baseline but slightly lower. Renal function has improved with IV fluids overnight, oral intake has also improved. -Saline lock IV Essential hypertension-blood pressure has improved -Continue home medications Maintenance issues - -DVT prophylaxis-SCDs and dual antiplatelet therapy -GI prophylaxis-not indicated -Nutrition-regular -Pate catheter-not indicated CODE STATUS -DNR/DNI Admission justification -this patient will be admitted for inpatient services and is medically appropriate meeting medical necessity for inpatient admission as outlined in my documentation. I reasonably expect the patient will require inpatient services that span a period time over 2 midnights. I reasonably expect this patient to be discharged or transferred within 96 hours [facility]. Disposition -I anticipate discharge home after the hospital stay Primary care physician - Bethanie Mendoza NP
[2021-11-29] MEDS: DIFLUPREDNATE EYERT SCH (17:00)
[2021-11-29] MEDS: Melatonin 3 MG Tab PO SCH (23:43)
[2021-11-30 08:25] VITALS: BP 178/79; PULSE 73
[2021-11-30] MEDS: amLODIPine 5 MG Tab PO SCH (08:27)
[2021-11-30] MEDS: Ezetimibe 10 MG Tab PO SCH (08:28)
[2021-11-30] MEDS: Aspirin 81 MG Tab.EC PO SCH (08:28)
[2021-11-30] MEDS: Levothyroxine 100 MCG Tab PO SCH (08:28)
[2021-11-30] MEDS: Clopidogrel 75 MG Tab PO SCH (08:28)
[2021-11-30] MEDS: Rosuvastatin 10 MG Tab PO SCH (08:28)
[2021-11-30] MEDS: DIFLUPREDNATE EYERT SCH (08:28)
--- NOTE | 2021-11-30 11:48 | PCM.DCSUM1 ---
Discharge Summary - Hospital Course Brief History: Ms. Knowles is an 85-year-old woman who was admitted through the emergency department with weakness and lethargy secondary to severe hypothyroidism. - Discharge Data Discharge Date: 11/30/21 Discharge Disposition: DC/Tfer to SNF 03 Condition: Fair - Referral to Home Health Primary Care Physician: PCP None - Discharge Diagnosis/Problem(s) (1) Syncope SNOMED Code(s): 683253515 ICD Code: R55 - SYNCOPE AND COLLAPSE Status: Acute Current Visit: No (2) Hypothyroidism, acquired SNOMED Code(s): 887447659 ICD Code: E03.9 - HYPOTHYROIDISM, UNSPECIFIED Status: Acute Current Visit: Yes (3) Essential hypertension SNOMED Code(s): 73835301 ICD Code: I10 - ESSENTIAL (PRIMARY) HYPERTENSION Status: Chronic Current Visit: Yes (4) Stage 3b chronic kidney disease (CKD) SNOMED Code(s): 395504372 ICD Code: N18.32 - CHRONIC KIDNEY DISEASE, STAGE 3B Status: Chronic Current Visit: Yes (5) Dementia SNOMED Code(s): 64001362 ICD Code: F03.90 - UNSPECIFIED DEMENTIA WITHOUT BEHAVIORAL DISTURBANCE Status: Acute Current Visit: Yes - Patient Summary/Data Consults: Consultations 11/27/21 16:27 OT Evaluation and Treatment [CONS] Routine Please Evaluate and Treat. OT Reason for Consult: ADL's This query below is only for informational purposes and is not editable. PT Evaluation and Treatment [CONS] Routine Please Evaluate and Treat. PT Reason for Consult: Strengthening This query below is only for informational purposes and is not editable. 11/28/21 09:40 Consult to Speech Language Pathology [[employer] Evaluation and Treatment] [CONS] Routine Please Evaluate and Treat [employer] Reason for Consult: Aphasia This query below is only for informational purposes and is not editable. Admission Diagnosis/Problem: CVA, Cerebrovascular accident Hospital Course: Ms. Knowles was brought to the emergency room for evaluation. Her son reports that she has been off the last few days and not quite acting like herself. She has had several falls. She has not reported anything specific to him. She is not able to provide any reliable history at this time but I am not sure if it is because she cannot say the right words or if she is not thinking clearly. He saw her this morning about 9 AM and she was acting fairly normal. Over the next several hours she became less and less interactive and did not speak. Medications were brought in by family and it was apparent that she had not been taking her usual medications for some time. Work-up in the emergency room was initially focused on ruling out stroke. Head CT showed some volume loss but no acute findings. Laboratory studies show a slight rise in her creatinine from baseline but close to her stage IIIb kidney disease. TSH was 172. No evidence for urinary tract infection. Neurology at [facility] in [place] was contacted regarding a possible stroke. They did not feel that this represented an acute stroke but did recommend additional work-up and continuing her medical management. She was started back on thyroid replacement medication. 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 CT scan with contrast and CTA of the head were also not possible because of her significant renal insufficiency. With thyroid replacement she improved significantly over the next 3 days of hospitalization. By the time of discharge she was still confused which has been present at baseline. She was talking eating and walking in the hallways with assistance. She is still fairly weak and not safe for discharged home. [facility] will be [facility] to the [facility] for restorative physical therapy and Occupational Therapy. There was concern about stroke but given her rapid improvement it is likely that all of her symptoms were secondary to the hypothyroidism and her underlying dementia. Follow-up TSH level will be obtained in 6 weeks. - Patient Instructions Diet: Usual Diet as Tolerated Activity: As Tolerated Other/Special Instructions: Obtain follow-up TSH in 6 weeks - Discharge Plan *PRESCRIPTION DRUG MONITORING PROGRAM REVIEWED*: Not Applicable *COPY OF PRESCRIPTION DRUG MONITORING REPORT IN PATIENT CHRIS: Not Applicable Home Medications: Home Meds Aspirin [Halfprin] 81 mg PO DAILY 08/21/13 [History] Clopidogrel Bisulfate [Clopidogrel] 75 mg PO DAILY 08/21/13 [History] Levothyroxine 75 mcg PO DAILY 08/21/13 [History] Difluprednate [Durezol] 1 drop EYERT DAILY 11/27/21 [History] Ezetimibe 10 mg PO DAILY 11/27/21 [History] Rosuvastatin [Crestor] 10 mg PO DAILY 11/27/21 [History] allopurinoL [Zyloprim] 100 mg PO DAILY 11/27/21 [History] amLODIPine [Norvasc] 2.5 mg PO DAILY 11/27/21 [History] paricalcitoL [Paricalcitol] 2 mcg PO ASDIRECTED 11/27/21 [History] Patient Handouts: Fall Prevention in the Home, Adult, [id number], Aphasia - Discharge Summary/Plan Comment DC Time >30 min.: No Total # of Minutes for Discharge Time: 20 - Patient Data Vitals - Most Recent: Last Vital Signs Temp 98.2 F 11/30/21 08:24 Pulse 73 11/30/21 08:24 Resp 18 11/30/21 08:24 BP 178/79 H 11/30/21 08:27 Pulse Ox 98 11/30/21 08:24 Weight - Most Recent: 114 lb I&O - Last 24 hours: Intake & Output 11/29/21 11/30/21 11/30/21 22:59 06:59 14:59 Intake Total 240 Output Total 150 300 200 Balance -150 -60 -200 Lab Results - Last 24 hrs: Laboratory Results - last 24 hr 11/30/21 Range/Units 04:27 Sodium 138 L (140-148) mmol/L Potassium 4.5 (3.6-5.2) mmol/L Chloride 102 (100-108) mmol/L Carbon Dioxide 28 (21-32) mmol/L Anion Gap 12.5 (5.0-14.0) mmol/L BUN 23 H (7-18) mg/dL Creatinine 1.5 H (0.6-1.0) mg/dL Est Cr Clr Drug Dosing 19.70 mL/min Estimated GFR (MDRD) 33 L (>60) Glucose 84 (74-106) mg/dL Calcium 9.0 (8.5-10.1) mg/dL Med Orders - Current: Current Medications Acetaminophen (Acetaminophen 325 Mg Tab) 650 mg PO Q4H PRN PRN Reason: Pain (Mild 1-3)/fever Allopurinol (Allopurinol 100 Mg Tab) 100 mg PO DAILY [facility] Amlodipine Besylate (Amlodipine 5 Mg Tab) 2.5 mg PO DAILY [facility] Last Admin: 11/30/21 08:27 Dose: 2.5 mg Documented by: Aspirin (Aspirin 81 Mg Tab.Ec) 81 mg PO DAILY [facility] Last Admin: 11/30/21 08:28 Dose: 81 mg Documented by: Clopidogrel Bisulfate (Clopidogrel 75 Mg Tab) 75 mg PO DAILY [facility] Last Admin: 11/30/21 08:28 Dose: 75 mg Documented by: Ezetimibe (Ezetimibe 10 Mg Tab) 10 mg PO DAILY [facility] Last Admin: 11/30/21 08:28 Dose: 10 mg Documented by: Levothyroxine Sodium (Levothyroxine 25 Mcg Tab) 75 mcg PO DAILY@0730 [facility] Lorazepam (Lorazepam 2 Mg/Ml Sdv) 0.5 mg IVPUSH Q4H PRN PRN Reason: Nausea/Vomiting Magnesium Hydroxide (Magnesium Hydroxide 400 Mg/5 Ml Susp 30 Ml Cup) 30 ml PO Q12H PRN PRN Reason: Constipation Melatonin (Melatonin 3 Mg Tab) 9 mg PO BEDTIME [facility] Last Admin: 11/29/21 23:43 Dose: 9 mg Documented by: (Difluprednate [ Durezol] 5 Ml Bottle ) 0 drop EYERT DAILY [facility] Last Admin: 11/30/21 08:28 Dose: 1 drop Documented by: Ondansetron HCl (Ondansetron 4 Mg/2 Ml Sdv) 4 mg IV Q6H PRN PRN Reason: Nausea/Vomiting Ondansetron HCl (Ondansetron 4 Mg Tab.Dis) 4 mg PO Q6H PRN PRN Reason: Nausea able to take PO Rosuvastatin Calcium (Rosuvastatin 10 Mg Tab) 10 mg PO DAILY [facility] Last Admin: 11/30/21 08:28 Dose: 10 mg Documented by: Senna/Docusate Sodium (Docusate Sodium/Sennosides 50-8.6 Mg Tab) 1 tab PO BID PRN PRN Reason: Constipation Last Admin: 11/30/21 08:32 Dose: 1 tab Documented by: Sodium Chloride (Sodium Chloride 0.9% 10 Ml Syringe) 10 ml FLUSH ASDIRECTED PRN PRN Reason: Keep Vein Open Last Admin: 11/27/21 14:39 Dose: 10 ml Documented by: Discontinued Medications Aspirin (Aspirin 81 Mg Tab.Chew) 324 mg PO ONETIME ONE Stop: 11/27/21 13:52 Last Admin: 11/27/21 14:23 Dose: 324 mg Documented by: Clopidogrel Bisulfate (Clopidogrel 75 Mg Tab) 75 mg PO ONETIME ONE Stop: 11/27/21 13:52 Last Admin: 11/27/21 14:21 Dose: 75 mg Documented by: Sodium Chloride (Normal Saline) 1,000 mls @ 75 mls/hr IV ASDIRECTED [facility] Last Admin: 11/29/21 03:01 Dose: 75 mls/hr Documented by: Levothyroxine Sodium (Levothyroxine 100 Mcg Vial) 100 mcg IVPUSH ONETIME ONE Stop: 11/27/21 15:02 Last Admin: 11/27/21 18:09 Dose: 100 mcg Documented by: Levothyroxine Sodium (Levothyroxine 100 Mcg Tab) 100 mcg PO ACBREAKFAST [facility] Last Admin: 11/30/21 08:28 Dose: 100 mcg Documented by: Metoprolol Tartrate (Metoprolol Tartrate 50 Mg Tab) 50 mg PO ONETIME ONE Stop: 11/27/21 13:52 Last Admin: 11/27/21 14:22 Dose: 50 mg Documented by: Potassium Chloride (Potassium Chloride 20 Meq Tab.Er) 40 meq PO ONETIME ONE Stop: 11/29/21 08:25 Last Admin: 11/29/21 08:48 Dose: 40 meq Documented by: Potassium Chloride (Potassium Chloride 20 Meq Tab.Er) 40 meq PO ONETIME ONE Stop: 11/29/21 17:01 Last Admin: 11/29/21 16:13 Dose: 40 meq Documented by: - Exam General: Reports: Alert, Cooperative, No Acute Distress Lungs: Reports: Clear to Auscultation, Normal Respiratory Effort Cardiovascular: Reports: Regular Rate, Regular Rhythm, No Murmurs GI/Abdominal Exam: Soft, Non-Tender, No Organomegaly, No Distention Extremities: Non-Tender, No Pedal Edema
--- NOTE | 2021-11-30 14:14 | PCM.EKG ---
#1 Interpretation EKG Date: 11/28/21 Time: 08:35 Rhythm: Other (Atrial paced rhythm) Rate (Beats/Min): 60 [place]: LAD-Left [place] Deviation P-Wave: Absent (Atrial paced rhythm) QRS: RBBB (Left anterior fascicular block) ST-T: Other (ST segment T wave abnormalities associated with right bundle branch block) QT: Normal Comparison: NA - No Prior EKG
[2021-12-01] MEDS ORDERED: Levothyroxine 25 MCG Tab PO SCH (07:30)
[2021-12-01] MEDS ORDERED: Allopurinol 100 MG Tab PO SCH (09:00)
== END 2021-11-30 12:50 | DRG 644 ==
LOC: JP.ED 13:07 → JP.MS 15:08
PROVIDERS: ADMIT Internal Medicine; ATTEND Hospitalist
DX: I63.9 Cerebral infarction, unspecified (principal); E03.9 Hypothyroidism, unspecified; R47.01 Aphasia; F03.90 Unspecified dementia, unspecified severity, without behavioral disturbance, psychotic disturbance, mood disturbance, and anxiety; Z79.02 Long term (current) use of antithrombotics/antiplatelets; I12.9 Hypertensive chronic kidney disease with stage 1 through stage 4 chronic kidney disease, or unspecified chronic kidney disease; N18.32 Chronic kidney disease, stage 3b; R29.6 Repeated falls; Z79.82 Long term (current) use of aspirin; Z79.899 Other long term (current) drug therapy; Z79.890 Hormone replacement therapy; Z88.8 Allergy status to other drugs, medicaments and biological substances; Z66 Do not resuscitate; Z95.0 Presence of cardiac pacemaker; Z20.822 Contact with and (suspected) exposure to COVID-19
CPT/HCPCS: 0241U; 36415; 70450; 80048; 81001; 84443; 84484; 85027; 93005; 96105; 97110; 97116; 97162; 97165; 97530; 99285; A9270-GY; J7030

== ENCOUNTER 2022-01-27 10:04 | Emergency (ER) | payer MEDICARE, OTHER ==
[2022-01-27 11:16] VITALS: PULSE 62
[2022-01-27 12:31] VITALS: BP 177/69
== END 2022-01-27 12:50 | disposition home or self-care (01) ==
LOC: JP.ED 10:04
DX: R41.0 Disorientation, unspecified (principal); R53.1 Weakness; D53.9 Nutritional anemia, unspecified; I10 Essential (primary) hypertension; I25.10 Atherosclerotic heart disease of native coronary artery without angina pectoris; E03.9 Hypothyroidism, unspecified; Z79.82 Long term (current) use of aspirin; Z79.899 Other long term (current) drug therapy; Z88.8 Allergy status to other drugs, medicaments and biological substances
CPT/HCPCS: 36415; 70450; 70450-26; 80048; 81001; 85025; 99283; 99285-25

== ENCOUNTER 2022-01-28 13:55 | Emergency (ER) | payer MEDICARE, OTHER ==
[2022-01-28 14:07] VITALS: PULSE 63
[2022-01-28 15:12] VITALS: BP 139/69
== END 2022-01-28 15:35 | disposition home or self-care (01) ==
LOC: JP.ED 13:55
DX: R41.0 Disorientation, unspecified (principal); R53.1 Weakness; D64.9 Anemia, unspecified; I25.10 Atherosclerotic heart disease of native coronary artery without angina pectoris; E78.00 Pure hypercholesterolemia, unspecified; I10 Essential (primary) hypertension; Z88.8 Allergy status to other drugs, medicaments and biological substances; Z79.82 Long term (current) use of aspirin; Z79.899 Other long term (current) drug therapy
CPT/HCPCS: 36415; 80048; 84443; 84484; 85025; 99283; 99285

== ENCOUNTER 2022-01-30 14:29 | Emergency (ER) | payer MEDICARE, OTHER ==
[2022-01-30 14:38] VITALS: BP 97/61; PULSE 63
== END 2022-01-30 17:33 | disposition home or self-care (01) ==
LOC: JP.ED 14:29
DX: R29.6 Repeated falls (principal); I25.10 Atherosclerotic heart disease of native coronary artery without angina pectoris; E78.00 Pure hypercholesterolemia, unspecified; I10 Essential (primary) hypertension; E03.9 Hypothyroidism, unspecified; Z88.8 Allergy status to other drugs, medicaments and biological substances; Z79.82 Long term (current) use of aspirin; Z79.899 Other long term (current) drug therapy
CPT/HCPCS: 36415; 70450; 70486; 80053; 80307; 81001; 84484; 85025; 93005; 99282; 99284-25

== ENCOUNTER 2022-02-27 12:52 | Emergency (ER) | payer MEDICARE, OTHER ==
[2022-02-27] MEDS ORDERED: Sodium Chloride 0.9% 1,000 ML IV SCH (13:45)
[2022-02-27] MEDS ORDERED: Metoprolol Succinate 25 MG Tab.ER PO ONE (15:13)
[2022-02-27 15:42] VITALS: BP 208/116; PULSE 99
== END 2022-02-27 15:46 | disposition home or self-care (01) ==
LOC: JP.ED 12:52
DX: R55 Syncope and collapse (principal); I10 Essential (primary) hypertension; I25.10 Atherosclerotic heart disease of native coronary artery without angina pectoris; E78.00 Pure hypercholesterolemia, unspecified; E03.9 Hypothyroidism, unspecified; Z88.8 Allergy status to other drugs, medicaments and biological substances; Z79.82 Long term (current) use of aspirin; Z79.899 Other long term (current) drug therapy; Z87.891 Personal history of nicotine dependence
CPT/HCPCS: 36415; 80053; 81001; 84443; 84484; 85025; 93005; 99283; 99284; A9270-GY; J7030

== ENCOUNTER 2022-09-05 14:01 | Emergency (ER) | payer MEDICARE, OTHER ==
[2022-09-29 22:20] LABS: ESTIMATED GFR 27 mL/min (>60)
== END 2022-09-05 16:25 | disposition home or self-care (01) ==
LOC: JP.ED 14:01
DX: R40.4 Transient alteration of awareness (principal); I25.10 Atherosclerotic heart disease of native coronary artery without angina pectoris; I10 Essential (primary) hypertension
CPT/HCPCS: 36415; 70450; 80048; 85027; 93005; 99284

== ENCOUNTER 2022-10-02 09:11 | Emergency (ER) | payer MEDICARE, OTHER ==
[2022-10-02] MEDS ORDERED: Aspirin 81 MG Tab.Chew PO ONE (09:42)
[2022-10-02 10:22] LABS: TROPONIN I HIGH SENSITIVITY 9711.2 pg/mL (<=60.3)
[2022-10-02] MEDS ORDERED: Sodium Chloride 0.9% 10 ML Syringe FLUSH PRN (10:29)
[2022-10-02] MEDS ORDERED: Heparin Sodium 5,000 Units/ML Vial IVPUSH ONE (10:29)
[2022-10-02] MEDS ORDERED: Heparin Sodium/D5W 25,000 UNITS/500 ML BAG IV SCH (10:30)
[2022-10-02 11:37] LABS: CORONAVIRUS COVID-19 NAA NEGATIVE (NEGATIVE)
[2022-10-02 15:41] VITALS: PULSE 81
[2022-10-02 15:52] VITALS: BP 112/63
== END 2022-10-02 16:08 ==
LOC: JP.ED 09:11
DX: I24.9 Acute ischemic heart disease, unspecified (principal); I25.10 Atherosclerotic heart disease of native coronary artery without angina pectoris; E78.00 Pure hypercholesterolemia, unspecified; I10 Essential (primary) hypertension; Z88.8 Allergy status to other drugs, medicaments and biological substances; Z79.899 Other long term (current) drug therapy; Z88.6 Allergy status to analgesic agent; Z79.82 Long term (current) use of aspirin; Z20.822 Contact with and (suspected) exposure to COVID-19
CPT/HCPCS: 0241U; 36415; 71045; 80048; 84484; 85025; 85610; 85730; 93005; 96365; 96366; 99285; A9270; J1644; J3490

== ENCOUNTER 2022-10-05 10:14 | Emergency (ER) | payer MEDICARE, OTHER ==
[2022-10-05 10:36] VITALS: BP 107/53; PULSE 66
== END 2022-10-05 13:55 | disposition home or self-care (01) ==
LOC: JP.ED 10:14
DX: N14.11 Contrast-induced nephropathy (principal); T50.8X5A Adverse effect of diagnostic agents, initial encounter; I21.4 Non-ST elevation (NSTEMI) myocardial infarction; E78.00 Pure hypercholesterolemia, unspecified; I12.9 Hypertensive chronic kidney disease with stage 1 through stage 4 chronic kidney disease, or unspecified chronic kidney disease; N18.9 Chronic kidney disease, unspecified; I25.2 Old myocardial infarction; E03.9 Hypothyroidism, unspecified; Z95.0 Presence of cardiac pacemaker; Z88.8 Allergy status to other drugs, medicaments and biological substances; Z79.82 Long term (current) use of aspirin; Z79.02 Long term (current) use of antithrombotics/antiplatelets; Z79.899 Other long term (current) drug therapy
CPT/HCPCS: 36415; 80048; 85025; 93005; 99285

== ENCOUNTER 2022-10-17 17:14 | Emergency (ER) | payer MEDICARE, OTHER ==
[2022-10-17] MEDS ORDERED: Heparin Sodium 5,000 Units/ML Vial IVPUSH ONE (19:06)
[2022-10-17] MEDS ORDERED: Furosemide 40 MG/4 ML VIAL IVPUSH ONE (19:11)
[2022-10-17] MEDS ORDERED: Heparin Sodium/D5W 25,000 UNITS/500 ML BAG IV SCH (19:15)
[2022-10-17] MEDS ORDERED: Sodium Chloride 0.9% 10 ML Syringe FLUSH PRN (19:20)
[2022-10-17 20:19] VITALS: BP 154/99; PULSE 97
== END 2022-10-17 21:39 | disposition home or self-care (01) ==
LOC: JP.ED 17:14
DX: I21.4 Non-ST elevation (NSTEMI) myocardial infarction (principal); F03.90 Unspecified dementia, unspecified severity, without behavioral disturbance, psychotic disturbance, mood disturbance, and anxiety; I13.0 Hypertensive heart and chronic kidney disease with heart failure and stage 1 through stage 4 chronic kidney disease, or unspecified chronic kidney disease; N18.32 Chronic kidney disease, stage 3b; I50.9 Heart failure, unspecified; D63.1 Anemia in chronic kidney disease; N17.9 Acute kidney failure, unspecified; I25.10 Atherosclerotic heart disease of native coronary artery without angina pectoris; E78.00 Pure hypercholesterolemia, unspecified; E03.9 Hypothyroidism, unspecified; I45.10 Unspecified right bundle-branch block; Z88.8 Allergy status to other drugs, medicaments and biological substances; Z79.82 Long term (current) use of aspirin; Z79.02 Long term (current) use of antithrombotics/antiplatelets; Z79.899 Other long term (current) drug therapy; Z20.822 Contact with and (suspected) exposure to COVID-19
CPT/HCPCS: 36415; 71046; 80048; 83735; 83880; 84484; 85025; 93005; 96365; 96366; 96375; 99285; J1644; J1940; J3490; U0002